=== PATIENT | male | born 1985 | race Caucasian/White ===

== ENCOUNTER 2019-10-23 08:42 | Observation (INO) | payer OTHER ==
[2019-10-23] MEDS ORDERED: Ketorolac 30 MG/ML SDV IVPUSH ONE ×3 (08:53→17:45)
[2019-10-23] MEDS: Sodium Chloride 0.9% 10 ML Syringe FLUSH PRN ×3 (08:59→14:44)
[2019-10-23] MEDS ORDERED: Ondansetron 4 MG/2 ML SDV IVPUSH ONE (09:09)
[2019-10-23] MEDS ORDERED: HYDROmorphone 2 MG/ML SDV IVPUSH ONE (09:09)
--- NOTE | 2019-10-23 09:54 | EDM.PDOC ---
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, R foot slipped on ice, as his foot was moving laterally it caught in a rut or uneven ground, as he fell his body twisted no previous injury to ankles pt in considerable pain on arrival, felt much better after Toradol 30 mg IV, Dilaudid 2 mg IV and Zofran 4 mg IV XR d/w Dr Boo, there is no fx of tibia, there is a spiral fx of the distal 1/ 3rd of the fibula but not at the ankle mortise itself which is partially subluxed medially Dr Lima contacted, he is in the OR and will see pt in one hour Treatments MEDICINE ASSISTANT: Reports: Cold Therapy R ankle Pain Score (Numeric/FACES): 10 - Related Data Allergies Allergy/AdvReac Type Severity Reaction Status Date / Time No Known Allergies Allergy Verified 10/23/19 08:48 Home Meds: Home Meds Albuterol [Ventolin HFA] 2 puff Q4H PRN 10/23/19 [History] Past Medical History Respiratory History: Reports: Asthma Endocrine/Metabolic History: Reports: Obesity/BMI 30+ - Infectious Disease History Infectious Disease History: Reports: Chicken Pox - Past Surgical History HEENT Surgical History: Reports: Oral Surgery Social & Family History - Family History Family Medical History: Noncontributory - Tobacco Use Smoking Status *Q: Former Smoker Used Tobacco, but Quit: Yes Month/Year Tobacco Last Used: 2003 - Caffeine Use Caffeine Use: Reports: Soda - Recreational Drug Use Recreational Drug Use: No Review of Systems - Review of Systems Review Of Systems: See Below Constitutional: Reports: No Symptoms Eyes: Reports: No Symptoms Ears: Reports: No Symptoms Nose: Reports: No Symptoms Mouth/Throat: Reports: No Symptoms Respiratory: Reports: No Symptoms Cardiovascular: Reports: No Symptoms GI/Abdominal: Reports: No Symptoms Genitourinary: Reports: No Symptoms Musculoskeletal: Reports: Joint Pain Skin: Reports: No Symptoms Neurological: Reports: No Symptoms Psychiatric: Reports: No Symptoms ED EXAM, GENERAL - Physical Exam Exam: See Below Exam Limited By: No Limitations General Appearance: Alert, WD/WN, Moderate Distress Nose: Normal Inspection Head: Atraumatic, Normocephalic Neck: Normal Inspection, Supple, Non-Tender Respiratory/Chest: No Respiratory Distress Cardiovascular: Regular Rate, Rhythm Back Exam: Normal Inspection, Full Range of Motion, NT Extremities: Other (no ecchymosis, mild deformity at R ankle, 2+ DP pulse ) Neurological: Alert, Oriented, CN II-XII Intact, Normal Cognition, No Motor/ Sensory Deficits Psychiatric: Normal Affect, Normal Mood Skin Exam: Warm, Dry, Intact Lymphatic: No Adenopathy Course - Vital Signs Last Recorded V/S: Last Vital Signs Temp 36.7 C 10/23/19 13:44 Pulse 66 10/23/19 13:44 Resp 18 10/23/19 13:44 BP 122/78 10/23/19 13:44 Pulse Ox 98 10/23/19 13:44 - Orders/Labs/Meds Orders: Active Orders 24 hr Category Date Time Status Lactated Ringers [Ringers, Lactated] 1,000 ml Med 10/23/19 13:44 Active IV ASDIRECTED Morphine Med 10/23/19 12:27 Active 2 mg IVPUSH Q2H PRN Sodium Chloride 0.9% [Saline Flush] Med 10/23/19 08:53 Active 10 ml FLUSH ASDIRECTED PRN Peripheral IV Insertion Adult [OM.PC] Routine Oth 10/23/19 08:53 Ordered Medication Orders Lactated Ringer's (Ringers, Lactated) 1,000 mls @ 100 mls/hr IV ASDIRECTED MARY Morphine Sulfate (Morphine) 2 mg IVPUSH Q2H PRN PRN Reason: Pain Last Admin: 10/23/19 12:50 Dose: 2 mg Sodium Chloride (Saline Flush) 10 ml FLUSH ASDIRECTED PRN PRN Reason: Keep Vein Open Last Admin: 10/23/19 12:49 Dose: 10 ml Admin: 10/23/19 08:59 Dose: 10 ml Meds: Medications Generic Name Dose Route Start Last Admin Trade Name Freq PRN Reason Stop Dose Admin Lactated Ringer's 1,000 mls @ 100 mls/hr 10/23/19 13:44 Ringers, Lactated IV ASDIRECTED MARY Morphine Sulfate 2 mg 10/23/19 12:27 10/23/19 12:50 Morphine IVPUSH 2 mg Q2H PRN Administration Pain Sodium Chloride 10 ml 10/23/19 08:53 10/23/19 12:49 Saline Flush FLUSH 10 ml ASDIRECTED PRN Administration Keep Vein Open Discontinued Medications Generic Name Dose Route Start Last Admin Trade Name Freq PRN Reason Stop Dose Admin Hydromorphone HCl 2 mg 10/23/19 09:09 10/23/19 09:20 Dilaudid IVPUSH 10/23/19 09:10 2 mg ONETIME ONE Administration Ketorolac Tromethamine 30 mg 10/23/19 08:53 10/23/19 08:59 Toradol IVPUSH 10/23/19 08:54 30 mg ONETIME ONE Administration Ketorolac Tromethamine 15 mg 10/23/19 12:26 10/23/19 12:48 Toradol IVPUSH 10/23/19 12:27 15 mg ONETIME ONE Administration Ondansetron HCl 4 mg 10/23/19 09:09 10/23/19 09:17 Zofran IVPUSH 10/23/19 09:10 4 mg ONETIME ONE Administration - Re-Assessments/Exams Free Text/Narrative Re-Assessment/Exam: 10/23/19 11:[address] Lima after he completed his case in the OR, Dr Lima has recommended surgery and has proposed doing it this afternoon, pt and in agreement, pt has remained comfortable Departure - Departure Time of Disposition: 11:20 Disposition: Refer to Observation Condition: Good Clinical Impression: High ankle sprain of right lower extremity, Fracture subluxation of right ankle joint Fibula fracture Qualifiers: Encounter type: initial encounter Fibula location: distal Fracture morphology: torus Laterality: right - Discharge Information *PRESCRIPTION DRUG MONITORING PROGRAM REVIEWED*: Not Applicable *COPY OF PRESCRIPTION DRUG MONITORING REPORT IN PATIENT SCOTT: Not Applicable Sepsis Event Note - Evaluation Sepsis Screening Result: No Definite Risk - Focused Exam Vital Signs: Vital Signs Temp Pulse Resp BP Pulse Ox 10/23/19 13:44 36.7 C 66 18 122/78 98 10/23/19 09:30 72 18 137/84 98 10/23/19 08:42 36.7 C 94 24 H 161/87 H 99 Date Exam was Performed: 10/23/19 Time Exam was Performed: 14:10 - My Orders Last 24 Hours: My Active Orders 10/23/19 08:53 Sodium Chloride 0.9% [Saline Flush] 10 ml FLUSH ASDIRECTED PRN Peripheral IV Insertion Adult [OM.PC] Routine - Assessment/Plan Last 24 Hours: My Active Orders 10/23/19 08:53 Sodium Chloride 0.9% [Saline Flush] 10 ml FLUSH ASDIRECTED PRN Peripheral IV Insertion Adult [OM.PC] Routine
[2019-10-23] MEDS ORDERED: Midazolam 1 MG/ML 2 ML SDV IV ONE (10:00)
[2019-10-23] MEDS ORDERED: Lactated Ringers 1,000 ML IV ONE (10:00)
[2019-10-23] MEDS ORDERED: Propofol 200 MG/20 ML SDV IV ONE (10:00)
[2019-10-23] MEDS ORDERED: Lidocaine 2% 5 ML SDV INJECT ONE (10:00)
[2019-10-23] MEDS ORDERED: HYDROmorphone 2 MG/ML SDV IV ONE (10:00)
[2019-10-23] MEDS ORDERED: Rocuronium 100 MG/10 ML MDV IV ONE (10:00)
[2019-10-23] MEDS ORDERED: fentaNYL 100 MCG/2 ML SDV IV ONE (10:00)
[2019-10-23] MEDS ORDERED: Succinylcholine 200 MG/10 ML MDV IV ONE (10:00)
--- NOTE | 2019-10-23 10:07 | CR ---
INDICATION: Fall, pain. Slipped on ice. RIGHT ANKLE: Three views of the right ankle were obtained 10/23/19 - no comparisons. What appears to be a BB is noted overlying the pretibial area lower middle third area of the tibia. There is a spiral comminuted fracture of the distal fibular shaft with approximately 4 mm lateral offset of the distal fracture fragment. Only minimal angulation of that distal fracture fragment is noted at the fracture site. Additionally, there is noted subluxation of the talus laterally. No tibial fracture site was seen. IMPRESSION: Fibular fracture with ligamental injury medially and subluxation at the ankle mortise. Report was called to Dr. Al at approximately 0945 hours. [facility]
[2019-10-23] MEDS: Morphine 2 MG/ML Syringe IVPUSH PRN (12:50)
--- NOTE | 2019-10-23 14:07 | PCM.HP.2 ---
H&P History of Present Illness - General Date of Service: 10/23/19 Admit Problem/Dx: right distal fibular shaft fracture Source of Information: Patient, Family, RN History Limitations: Reports: No Limitations - History of Present Illness Onset of Symptoms: Reports: Today, Sudden Symptom Onset Date: 10/23/19 Duration of Symptoms: Reports: Hour(s): Location: Reports: Lower Extremity, Right Quality: Reports: Ache, Burning, Dull Severity: Moderate Improves with: Reports: Immobilization Worsens with: Reports: Movement Associated Symptoms: Reports: No Other Symptoms R ankle Pain Score (Numeric/FACES): 10 - Related Data Allergies/Adverse Reactions: Allergies Allergy/AdvReac Type Severity Reaction Status Date / Time No Known Allergies Allergy Verified 10/23/19 08:48 Home Medications: Home Meds Albuterol [Ventolin HFA] 2 puff Q4H PRN 10/23/19 [History] Past Medical History Respiratory History: Reports: Asthma Endocrine/Metabolic History: Reports: Obesity/BMI 30+ - Infectious Disease History Infectious Disease History: Reports: Chicken Pox - Past Surgical History HEENT Surgical History: Reports: Oral Surgery Social & Family History - Family History Family Medical History: Noncontributory - Tobacco Use Smoking Status *Q: Former Smoker Used Tobacco, but Quit: Yes Month/Year Tobacco Last Used: 2003 - Caffeine Use Caffeine Use: Reports: Soda - Recreational Drug Use Recreational Drug Use: No H&P Review of Systems - Review of Systems: Review Of Systems: See Below General: Reports: No Symptoms HEENT: Reports: No Symptoms Pulmonary: Reports: No Symptoms Cardiovascular: Reports: No Symptoms Gastrointestinal: Reports: No Symptoms Genitourinary: Reports: No Symptoms Musculoskeletal: Reports: Leg Pain, Joint Pain, Joint Swelling Skin: Reports: No Symptoms Psychiatric: Reports: No Symptoms Neurological: Reports: No Symptoms Hematologic/Lymphatic: Reports: No Symptoms Immunologic: Reports: No Symptoms Exam - Exam Exam: See Below - Vital Signs Vital Signs: Last Vital Signs Temp 98.1 F 10/23/19 13:44 Pulse 66 10/23/19 13:44 Resp 18 10/23/19 13:44 BP 122/78 10/23/19 13:44 Pulse Ox 98 10/23/19 13:44 Weight: 330 lb - Exam General: Alert, Oriented, Cooperative, Moderate Distress HEENT: PERRLA, Conjunctiva Clear, EACs Clear, EOMI, Hearing Intact, Mucosa Moist & [place] Neck: Supple, Trachea Midline Lungs: Clear to Auscultation, Normal Respiratory Effort Cardiovascular: Regular Rate, Regular Rhythm Extremities: Joint Swelling, Leg Pain, Limited Range of Motion Peripheral Pulses: 2+: Dorsalis Pedis (L), Dorsalis Pedis (R) Skin: Warm, Dry, Intact Neurological: Cranial Nerves Intact, Other Neuro Extensive - Mental Status: Alert, Oriented x3, Normal Mood/Affect, Normal Cognition, Memory Intact Psychiatric: Alert, Normal Affect, Normal Mood Sepsis Event Note - Evaluation Sepsis Screening Result: No Definite Risk - Focused Exam Vital Signs: Vital Signs Temp Pulse Resp BP Pulse Ox 10/23/19 13:44 98.1 F 66 18 122/78 98 10/23/19 09:30 72 18 137/84 98 10/23/19 08:42 98.1 F 94 24 H 161/87 H 99 Date Exam was Performed: 10/23/19 Time Exam was Performed: 14:03 - Problem List (1) Fracture of fibula, right, closed SNOMED Code(s): 719706113, 24621712898355802 ICD Code: S82.401A - UNSP FRACTURE OF SHAFT OF RIGHT FIBULA, INIT FOR CLOS FX Status: Acute Current Visit: Yes Qualifiers: Encounter type: initial encounter Fibula location: distal Problem List Initiated/Reviewed/Updated: Yes Orders Last 24hrs: Active Orders 24 hr Category Date Time Status Lactated Ringers [Ringers, Lactated] 1,000 ml Med 10/23/19 13:44 Active IV ASDIRECTED Morphine Med 10/23/19 12:27 Active 2 mg IVPUSH Q2H PRN Sodium Chloride 0.9% [Saline Flush] Med 10/23/19 08:53 Active 10 ml FLUSH ASDIRECTED PRN Peripheral IV Insertion Adult [OM.PC] Routine Oth 10/23/19 08:53 Ordered Medication Orders Lactated Ringer's (Ringers, Lactated) 1,000 mls @ 100 mls/hr IV ASDIRECTED MARY Morphine Sulfate (Morphine) 2 mg IVPUSH Q2H PRN PRN Reason: Pain Last Admin: 10/23/19 12:50 Dose: 2 mg Sodium Chloride (Saline Flush) 10 ml FLUSH ASDIRECTED PRN PRN Reason: Keep Vein Open Last Admin: 10/23/19 12:49 Dose: 10 ml Admin: 10/23/19 08:59 Dose: 10 ml Assessment/Plan Comment:: A: 34 yo male recently fell from standing position today. denies previous injury to right ankle. Seen in ER and plain films confirm above mentioned diagnosis P: to OR today for ORIF distal fibular shaft. f/u 2 weeks in clinic nwb x 8 weeks - Mortality Measure Prognosis:: Good
[2019-10-23] MEDS: Lactated Ringers 1,000 ML IV SCH ×2 (14:44→23:34)
[2019-10-23] MEDS ORDERED: Bupivacaine 0.5%/EPINEPHrine 1:200,000 50 ML MDV INJECT ONE (15:20)
--- NOTE | 2019-10-23 15:55 | PCM.OPNOTE ---
- General Post-Op/Procedure Note Date of Surgery/Procedure: 10/23/19 Operative Procedure(s): orif right distal fibular shaft Pre Op Diagnosis: closed distal fibular shaft fracture Post-Op Diagnosis: Same Anesthesia Technique: General ET Tube Primary Surgeon: Norm Lima Anesthesia Provider: Shannon Brown EBL in mLs: 25 Complications: None Condition: Good
[2019-10-23] MEDS ORDERED: hydrOXYzine HCl 25 MG Tab PO PRN (18:07)
[2019-10-23] MEDS: Acetaminophen/oxyCODONE 325-5 MG Tab PO PRN (20:20)
--- NOTE | 2019-10-23 22:02 | OR ---
DATE OF OPERATION: 10/23/2019 SURGEON: Norm Lima DO PREOPERATIVE DIAGNOSIS: Right distal fibular shaft fracture. POSTOPERATIVE DIAGNOSIS: Right distal fibular shaft fracture. PROCEDURE: Open reduction internal fixation right distal fibular shaft fracture. ANESTHESIA: General endotracheal intubation. FLUID: Lactated Ringer's solution. ESTIMATED BLOOD LOSS: 25 mL. COMPLICATIONS: None. SPECIMEN: None. DISCHARGE DISPOSITION: Stable to PACU. HISTORY AND INDICATION FOR PROCEDURE: The patient was seen preoperatively in the ER. He had slipped and fallen. His preoperative imaging confirmed the above-mentioned diagnosis. Risks and benefits of the procedure were explained to the patient. Informed consent was obtained. DETAILS OF PROCEDURE: The patient was seen preoperatively by myself and by Anesthesia staff in the preoperative holding area where the operative site was marked. He was brought to the operative suite by Anesthesia staff, where general anesthesia was administered. All extremities were found to be well padded. A bump was placed under his right hip. The right thigh had a well- padded tourniquet placed. The right lower extremity was then prepped and draped in a sterile manner. Time-out was called identifying the correct patient, correct procedure, the correct site, and the antibiotics were begun within appropriate period of time. The right lower extremity was exsanguinated. Tourniquet was raised to 250 mmHg. A sterilely draped C-arm was used to identify the fracture site. An incision was made 10 cm proximal and distal to this graham and carried down to the subcutaneous fascia. I could see a hematoma and went through that rent in the muscle where it was at, and then used an elevator to bluntly elevate the soft tissues off the distal fibula. After that had been accomplished, I then irrigated to remove more of the hematoma. I then reduced this with bone clamps. I see that I could reduce, so I removed the clamps and then placed an 8-hole one- third tubular plate and then clamped it to the bone clamp. I then applied 2 screws and confirmed that this provided reduction on fluoroscopy. I then drilled and filled the remainder of the screw holes in the plate and then took final films which showed good reduction as well as reduction of the mortise. We then irrigated with saline again and then closed the subcutaneous layer with #1 StrataFix, followed by skin jany, followed by Betadine-soaked Adaptic, fluffs, and Medipore tape. He was then later placed into a boot in the PACU. He was taken to PACU in stable condition /[id number] BS/VIELKAL
[2019-10-24] MEDS: Morphine 2 MG/ML Syringe IVPUSH PRN ×3 (00:15→12:59)
[2019-10-24] MEDS ORDERED: Acetaminophen/oxyCODONE 325-5 MG Tab PO STA (04:48)
[2019-10-24] MEDS ORDERED: Ketorolac 30 MG/ML SDV IVPUSH STA (04:49)
[2019-10-24] MEDS: Lactated Ringers 1,000 ML IV SCH ×3 (08:34→23:05)
[2019-10-24] MEDS ORDERED: Midazolam 1 MG/ML 2 ML SDV IV ONE (08:49)
[2019-10-24] MEDS ORDERED: Propofol 200 MG/20 ML SDV IV ONE (08:49)
[2019-10-24] MEDS ORDERED: Ropivacaine 0.5% 5 MG/ML 20 ML SDV INJECT ONE (08:49)
[2019-10-24] MEDS ORDERED: Lidocaine 1% PF 2 ML SDV INJECT ONE (08:49)
[2019-10-24] MEDS ORDERED: fentaNYL 100 MCG/2 ML SDV IV ONE (08:49)
--- NOTE | 2019-10-24 08:53 | PCM.PN ---
- General Info Date of Service: 10/24/19 Admission Dx/Problem (Free Text): right distal fibular shaft fracture Functional Status: Reports: Pain Controlled, Tolerating Diet, Urinating - Review of Systems General: Reports: No Symptoms HEENT: Reports: No Symptoms Pulmonary: Reports: No Symptoms Cardiovascular: Reports: No Symptoms Gastrointestinal: Reports: No Symptoms Genitourinary: Reports: No Symptoms Musculoskeletal: Reports: Joint Pain, Joint Swelling Skin: Reports: No Symptoms Neurological: Reports: No Symptoms Psychiatric: Reports: No Symptoms - Patient Data Vitals - Most Recent: Last Vital Signs Temp 97.5 F 10/24/19 04:20 Pulse 72 10/24/19 04:20 Resp 18 10/24/19 04:20 BP 142/88 H 10/24/19 04:20 Pulse Ox 97 10/24/19 04:20 Weight - Most Recent: 356 lb I&O - Last 24 Hours: Intake & Output 10/23/19 10/24/19 10/24/19 22:59 06:59 14:59 Intake Total 900 Balance 900 Med Orders - Current: Current Medications Hydroxyzine HCl (Atarax) 25 mg PO Q6H PRN PRN Reason: Pain Lactated Ringer's (Ringers, Lactated) 1,000 mls @ 100 mls/hr IV ASDIRECTED MARY Last Admin: 10/24/19 08:34 Dose: 100 mls/hr Morphine Sulfate (Morphine) 2 mg IVPUSH Q2H PRN PRN Reason: Pain Last Admin: 10/24/19 04:23 Dose: 2 mg Oxycodone/Acetaminophen (Percocet 325-5 Mg) 1 tab PO Q6H PRN PRN Reason: Pain Last Admin: 10/23/19 20:20 Dose: 1 tab Sodium Chloride (Saline Flush) 10 ml FLUSH ASDIRECTED PRN PRN Reason: Keep Vein Open Last Admin: 10/23/19 14:44 Dose: 10 ml Discontinued Medications Hydromorphone HCl (Dilaudid) 2 mg IVPUSH ONETIME ONE Stop: 10/23/19 09:10 Last Admin: 10/23/19 09:20 Dose: 2 mg Cefazolin Sodium 3 gm/ Sodium (Chloride) 100 mls @ 200 mls/hr IV ONETIME ONE Stop: 10/23/19 14:59 Last Admin: 10/23/19 19:38 Dose: Not Given Ketorolac Tromethamine (Toradol) 30 mg IVPUSH ONETIME ONE Stop: 10/23/19 08:54 Last Admin: 10/23/19 08:59 Dose: 30 mg Ketorolac Tromethamine (Toradol) 15 mg IVPUSH ONETIME ONE Stop: 10/23/19 12:27 Last Admin: 10/23/19 12:48 Dose: 15 mg Ketorolac Tromethamine (Toradol) 30 mg IVPUSH ONETIME ONE Stop: 10/23/19 17:46 Last Admin: 10/23/19 18:06 Dose: 30 mg Ketorolac Tromethamine (Toradol) 30 mg IVPUSH ONETIME STA Stop: 10/24/19 04:50 Last Admin: 10/24/19 05:04 Dose: 30 mg Ondansetron HCl (Zofran) 4 mg IVPUSH ONETIME ONE Stop: 10/23/19 09:10 Last Admin: 10/23/19 09:17 Dose: 4 mg Oxycodone/Acetaminophen (Percocet 325-5 Mg) 2 tab PO ONETIME STA Stop: 10/24/19 04:49 Last Admin: 10/24/19 05:05 Dose: 2 tab - Exam General: Alert, Oriented, Cooperative, No Acute Distress HEENT: Pupils Equal, Pupils Reactive, EOMI, Mucous Membr. Moist/[place] Neck: Supple, Trachea Midline Lungs: Normal Respiratory Effort GI/Abdominal Exam: No Distention Extremities: Joint Swelling, Leg Pain, Limited Range of Motion Peripheral Pulses: 2+: Dorsalis Pedis (L), Dorsalis Pedis (R) Skin: Warm, Dry, Intact Wound/Incisions: Healing Well, Dressing Dry and Intact, No Drainage Neurological: No New Focal Deficit Psy/Mental Status: Alert, Normal Affect, Normal Mood Sepsis Event Note - Evaluation Sepsis Screening Result: No Definite Risk - Focused Exam Vital Signs: Vital Signs Temp Pulse Resp BP Pulse Ox 10/24/19 04:20 97.5 F 72 18 142/88 H 97 10/24/19 00:00 98.0 F 75 16 107/64 94 L Date Exam was Performed: 10/24/19 Time Exam was Performed: 08:49 - Problem List & Annotations (1) Fracture of fibula, right, closed SNOMED Code(s): 212731605, 32214458018071890 Code(s): S82.401A - UNSP FRACTURE OF SHAFT OF RIGHT FIBULA, INIT FOR CLOS FX Status: Acute Current Visit: Yes Qualifiers: Encounter type: initial encounter Fibula location: distal - Problem List Review Problem List Initiated/Reviewed/Updated: Yes - My Orders Last 24 Hours: My Active Orders 10/23/19 12:27 Morphine 2 mg IVPUSH Q2H PRN 10/23/19 13:44 Lactated Ringers [Ringers, Lactated] 1,000 ml IV ASDIRECTED 10/23/19 16:02 Tibia Fibula Rt [CR] Routine 10/23/19 16:50 Admission Status [Patient Status] [ADT] Routine 10/23/19 17:40 Ankle Min 3V Rt [CR] Routine 10/23/19 18:06 Neurovascular Check [RC] 08,12,16,20,00,04 Up to Chair [RC] TIDMEALS Acetaminophen/oxyCODONE [Percocet 325-5 MG] 1 tab PO Q6H PRN 10/23/19 18:07 hydrOXYzine HCL [Atarax] 25 mg PO Q6H PRN 10/24/19 08:39 Code Status [Resuscitation Status] Routine 10/24/19 Breakfast NPO After Midnight [Nothing per Oral After Midnight Diet] [DIET] - Plan Plan:: A: 34 yo male POD 1 right fibula ORIF. Pt was combative coming out of anesthesia and kicked staff with operative leg. Post operative radiographs were ordered to evaluate if hardware was still in place. This showed a wide mortise consistent with syndesmotic injury. This was not present intra-operatively verified while stressing the syndesmosis and C -arm images verified this. P: I explained the need to repair the syndesmosis to the patient. We will proceed today at noon to OR. Risks and goals of procedure were explained. Will DC after surgery today. f/u 2 weeks in clinic nwb x 8 weeks
[2019-10-24] MEDS ORDERED: Bupivacaine 0.5%/EPINEPHrine 1:200,000 50 ML MDV INJECT ONE (11:00)
--- NOTE | 2019-10-24 11:13 | US ---
INDICATION: Left femoral nerve block. ULTRASOUND RFA GUIDANCE: Ultrasound was utilized for guidance to the left femoral nerve for blockage. Several images were obtained showing the needle placement. MTDD
--- NOTE | 2019-10-24 11:16 | CR ---
INDICATION: ORIF C-ARM LESS THAN ONE HOUR: 0.2 minutes C-arm fluoroscopy time was utilized in right fibular fracture ORIF procedure. KATERIN
--- NOTE | 2019-10-24 11:20 | CR ---
INDICATION: Pain, recent surgery. RIGHT ANKLE: Three views of the right ankle were obtained and revealed a plate fixing comminuted distal fibular shaft fracture fragments in good position and alignment and a complicating process was not identified. There is noted fracture line extending below the level of the plate with multiple screws. Subluxation is again noted at the ankle mortise with lateral shift of the talus with respect to the tibia of approximately 5 to 6 mm. This examination was obtained portable. There is a foreign body BB noted in the posterior interosseous soft tissues adjacent to the distal tibial shaft. Metallic skin clips are noted in place laterally. MTDD
--- NOTE | 2019-10-24 11:23 | CR ---
INDICATION: Postop. RIGHT TIB-FIB: Frontal and lateral views of the right tibia and fibula revealed post-ORIF change with plate across the comminuted fracture site of the distal fibular shaft with [address] Laterally, there are metallic skin clips. Position and alignment appears to be adequate. There is a large fracture fragment that is noted with slight separation at the posterior aspect of the fracture site. MTDD
--- NOTE | 2019-10-24 11:34 | PCM.OPNOTE ---
- General Post-Op/Procedure Note Date of Surgery/Procedure: 10/24/19 Operative Procedure(s): orif right ankle syndesmosis Pre Op Diagnosis: right ankle syndesmotic injury Post-Op Diagnosis: Same Anesthesia Technique: Moderate Sedation, Regional Block Primary Surgeon: Norm Lima Anesthesia Provider: Ralph Marx EBL in mLs: 15 Complications: None Condition: Good Free Text/Narrative:: Intake & Output 10/23/19 10/24/19 10/24/19 22:59 06:59 14:59 Intake Total 900 Balance 900
[2019-10-24] MEDS: Acetaminophen/oxyCODONE 325-5 MG Tab PO PRN ×2 (12:51→23:03)
--- NOTE | 2019-10-24 12:52 | PCM.SN ---
- Free Text/Narrative Note: ANESTHESIA ACUTE PAIN SERVICE Date: 10/24/2019 Time: 1000 to 1015 Dx: Right Ankle Syndesmotic Fracture Rx: ORIF Right Syndesmotic Fracture This patient had right ankle surgery on 10/23/2019 under GET[facility]. Upon emergence, he was extremely wild, combative and had SpO2's in the mid 80's. He refused spinal anesthesia yesterday. It was felt that staying away from GETA was ideal but he still refused a spinal anesthetic. I discussed at length with the patient, and surgeon the use of a peripheral nerve block with sedation. All agreed with the plan and the patient's questions were all answered completely. A consent was obtained. Procedure: Right Femoral Nerve Block with Ultrasound [U/S] Guidance. Monitors: SpO2 and Heart Rate. Sedation: Versed 2 mg's and 100 mcg's of Fentanyl IV. The patient was easily aroused and alert however his O2 saturations did decreased to 91% and nasal oxygen at 2 L/M was applied. The patient was in a supine position. A preprocedure U/S scan was done using U/ S identifying the right Femoral Artery, Vein and Nerve. Using aseptic technique , the right inguinal crease was prepped with a Chlora-Prep Sponge X 1 and allowed to dry. Under direct U/S visualization, I infiltrated the needle insertion site with 2 ml's of 1% Lidocaine plain using a 27 Ga. needle. With direct U/S visualization of the right Femoral Artery and Nerve, I inserted and advanced a 20 Ga. X 4 In. Stimuplex Ultra 360 Insulated Echogenic Needle into a good position with negative aspirations for blood. A divided dosage of .5% Naropin totaling 30 ml's was injected without problems under direct U/S visualization. The patient tolerated this nerve block well and had no complaints. Approximately 15 minutes later, he had a very good right leg block and no pain with pressure to his fracture site. Documentation: Please see the U/S images found in the PAC System in Radiology. Thank you for using this service. Ralph Marx CRNA Lei
--- NOTE | 2019-10-24 13:06 | OR ---
DATE OF OPERATION: 10/24/2019 SURGEON: Norm Lima DO PREOPERATIVE DIAGNOSIS: Right syndesmotic ankle injury. POSTOPERATIVE DIAGNOSIS: Right syndesmotic ankle injury. PROCEDURE: Open reduction and internal fixation, right ankle syndesmosis. ANESTHESIA: Femoral nerve block plus local plus conscious sedation. FLUID: Lactated Ringer solution. ESTIMATED BLOOD LOSS: 15 mL. COMPLICATIONS: None. SPECIMEN: None. DISCHARGE DISPOSITION: Stable to PACU. HISTORY AND INDICATIONS FOR THE PROCEDURE: The patient underwent surgery yesterday for distal fibular shaft fracture. When he was coming out of anesthesia, he kicked several times the operative leg. Postoperative films show that the syndesmosis was open. We had intraoperative imaging showing that it was closed after reduction of the fibula. The risks and goals of the procedure were explained to the patient. Informed consent was obtained. DETAILS OF PROCEDURE: The patient was seen preoperatively by myself and the Anesthesia staff in the preoperative holding area where the operative site was marked. He was brought to the operative suite by Anesthesia staff where femoral nerve block was performed and conscious sedation was performed. A well-padded tourniquet was placed on the right leg distal to the knee. The right lower extremity was then prepped and draped in a sterile manner. Time-out was called identifying the correct patient, the correct procedure, the correct site, and the antibiotics were begun within appropriate time. Fluoroscopy was used to visualize the area to go through to protect the syndesmosis. I opened a few of those jany up and then extended the incision. I placed a 4-hole plate, which was the smallest we had. I then used a K-wire to hold this in position. I drilled the distal syndesmotic screw first, which was 60 mm partially-threaded 4- 0 cancellous, and then did a 55 mm more proximally. This reduced it very nicely. We then irrigated with Betadine-infused irrigation and closed with #1 Stratafix and skin jany, then placed Betadine-soaked Adaptic dressing, fluffs, Kerlix, and an Kraig wrap. The patient was then allowed to awaken from conscious sedation and taken to the PACU in stable condition. /[id number] BS/VIELKAL
[2019-10-24] MEDS: Gabapentin 300 MG Cap PO SCH ×2 (13:12→20:36)
[2019-10-24] MEDS ORDERED: Acetaminophen/oxyCODONE 325-5 MG Tab PO PRN (13:33)
--- NOTE | 2019-10-24 13:46 | CR ---
INDICATION: Guidance for ORIF ankle. C-ARM LESS THAN 1 HOUR IN OR: 0.2 minutes C-arm fluoroscopy time was utilized in OR for ORIF for guidance with stabilization of the ankle mortise. Nine images of the ankle mortise were obtained and revealed placement of a plate with 2 screws fixing the distal fibula to the distal tibia to correct the ankle mortise subluxation. The ankle mortise space appears to be symmetrical at this time. A definite complicating process was not identified. MTDD
[2019-10-24] MEDS ORDERED: HYDROmorphone 2 MG/ML SDV IVPUSH PRN (13:49)
[2019-10-24] MEDS: Ketorolac 30 MG/ML SDV IVPUSH SCH ×2 (14:12→20:36)
[2019-10-24] MEDS: Sodium Chloride 0.9% 10 ML Syringe FLUSH PRN (14:36)
[2019-10-25] MEDS: Ketorolac 30 MG/ML SDV IVPUSH SCH ×2 (02:13→07:44)
[2019-10-25] MEDS: Sodium Chloride 0.9% 10 ML Syringe FLUSH PRN (07:45)
--- NOTE | 2019-10-25 08:27 | PCM.DCSUM1 ---
Discharge Summary - Hospital Course Free Text/Narrative:: Patient discharged to home today, with . He is doing well and pain is well controlled with oral medications. Diagnosis: Stroke: No - Discharge Data Discharge Date: 10/25/19 Discharge Disposition: Home, Self-Care 01 Condition: Good - Referral to Home Health Primary Care Physician: lM Corea NP - Discharge Diagnosis/Problem(s) (1) Fibula fracture SNOMED Code(s): 48887025 ICD Code: S82.409A - UNSP FRACTURE OF SHAFT OF UNSP FIBULA, INIT FOR CLOS FX Status: Acute Priority: High Current Visit: Yes Onset Date: ~10/23/19 Qualifiers: Encounter type: initial encounter Fibula location: distal Fracture type: closed Fracture morphology: torus Laterality: right Qualified Code(s): S82.821A - Torus fracture of lower end of right fibula, initial encounter for closed fracture - Patient Summary/Data Operative Procedure(s) Performed: orif right ankle syndesmosis - Patient Instructions Diet: Usual Diet as Tolerated Activity: Apply Ice Activity, Other: No weight bearing on the right lower extremity, with CAM boot Driving: Do Not Drive Showering/Bathing: May Shower Wound/Incision Care: Keep Operative Site/Wound Site Clean and Dry Notify Provider of: Fever, Increased Pain, Swelling and Redness, Drainage - Discharge Plan *PRESCRIPTION DRUG MONITORING PROGRAM REVIEWED*: Not Applicable *COPY OF PRESCRIPTION DRUG MONITORING REPORT IN PATIENT SCOTT: Not Applicable Prescriptions/Med Rec: oxyCODONE HCl/Acetaminophen [Oxycodone-Acetaminophen 5-325] 1 each PO Q6HR #28 tablet hydrOXYzine pamoate [Vistaril] 25 mg PO Q8H #21 cap Home Medications: Home Meds Albuterol [Ventolin HFA] 2 puff Q4H PRN 10/23/19 [History] hydrOXYzine pamoate [Vistaril] 25 mg PO Q8H #21 cap 10/23/19 [Rx] oxyCODONE HCl/Acetaminophen [Oxycodone-Acetaminophen 5-325] 1 each PO Q6HR #28 tablet 10/23/19 [Rx] Patient Handouts: Crutch Use, Adult, [id number], Acetaminophen; Oxycodone tablets, Displaced Fibular Ankle Fracture Treated With ORIF Forms: ED Department Discharge Referrals: Ml Corea PATIENT NAVIGATOR [Primary Care Provider] - - Discharge Summary/Plan Comment DC Time >30 min.: No Discharge Summary/Plan Comment: Discharge to home. - Patient Data Vitals - Most Recent: Last Vital Signs Temp 36.7 C 10/25/19 00:00 Pulse 89 10/25/19 00:00 Resp 16 10/25/19 00:00 BP 123/76 10/25/19 00:00 Pulse Ox 95 10/25/19 00:00 Weight - Most Recent: 161.479 kg I&O - Last 24 hours: Intake & Output 10/24/19 10/25/19 10/25/19 22:59 06:59 14:59 Intake Total 940 750 Balance 940 750 Med Orders - Current: Current Medications Gabapentin (Neurontin) 300 mg PO TID [facility] Last Admin: 10/24/19 20:36 Dose: 300 mg Hydromorphone HCl (Dilaudid) 2 mg IVPUSH Q6H PRN PRN Reason: Pain (moderate 4-6) Hydroxyzine HCl (Atarax) 25 mg PO Q6H PRN PRN Reason: Pain Lactated Ringer's (Ringers, Lactated) 1,000 mls @ 100 mls/hr IV ASDIRECTED MARY Last Admin: 10/24/19 23:05 Dose: 100 mls/hr Ketorolac Tromethamine (Toradol) 30 mg IVPUSH Q6H [facility] Stop: 10/25/19 14:01 Last Admin: 10/25/19 07:44 Dose: 30 mg Morphine Sulfate (Morphine) 2 mg IVPUSH Q2H PRN PRN Reason: Pain Last Admin: 10/24/19 12:59 Dose: 2 mg Oxycodone/Acetaminophen (Percocet 325-5 Mg) 1 tab PO Q6H PRN PRN Reason: Pain Last Admin: 10/24/19 23:03 Dose: 1 tab Sodium Chloride (Saline Flush) 10 ml FLUSH ASDIRECTED PRN PRN Reason: Keep Vein Open Last Admin: 10/25/19 07:45 Dose: 10 ml Discontinued Medications Diazepam (Valium) 5 mg IVPUSH ONETIME ONE Stop: 10/24/19 14:16 Last Admin: 10/24/19 14:25 Dose: 5 mg Hydromorphone HCl (Dilaudid) 2 mg IVPUSH ONETIME ONE Stop: 10/23/19 09:10 Last Admin: 10/23/19 09:20 Dose: 2 mg Cefazolin Sodium 3 gm/ Sodium (Chloride) 100 mls @ 200 mls/hr IV ONETIME ONE Stop: 10/23/19 14:59 Last Admin: 10/23/19 19:38 Dose: Not Given Cefazolin Sodium 3 gm/ Sodium (Chloride) 100 mls @ 200 mls/hr IV ONETIME ONE Stop: 10/24/19 11:14 Last Admin: 10/24/19 10:59 Dose: 200 mls/hr Ketorolac Tromethamine (Toradol) 30 mg IVPUSH ONETIME ONE Stop: 10/23/19 08:54 Last Admin: 10/23/19 08:59 Dose: 30 mg Ketorolac Tromethamine (Toradol) 15 mg IVPUSH ONETIME ONE Stop: 10/23/19 12:27 Last Admin: 10/23/19 12:48 Dose: 15 mg Ketorolac Tromethamine (Toradol) 30 mg IVPUSH ONETIME ONE Stop: 10/23/19 17:46 Last Admin: 10/23/19 18:06 Dose: 30 mg Ketorolac Tromethamine (Toradol) 30 mg IVPUSH ONETIME STA Stop: 10/24/19 04:50 Last Admin: 10/24/19 05:04 Dose: 30 mg Ondansetron HCl (Zofran) 4 mg IVPUSH ONETIME ONE Stop: 10/23/19 09:10 Last Admin: 10/23/19 09:17 Dose: 4 mg Oxycodone/Acetaminophen (Percocet 325-5 Mg) 2 tab PO ONETIME STA Stop: 10/24/19 04:49 Last Admin: 10/24/19 05:05 Dose: 2 tab Oxycodone/Acetaminophen (Percocet 325-5 Mg) 1 tab PO ONETIME PRN PRN Reason: Pain Last Admin: 10/24/19 14:24 Dose: 1 tab
== END 2019-10-25 08:50 | disposition home or self-care (01) ==
LOC: FB.ED 08:42 → FB.SDS 13:13 → FB.MS 17:06 → FB.SDS 10-24 15:38 → FB.MS 10-24 15:39
PROVIDERS: ADMIT Orthopaedic Surgery; ATTEND Orthopaedic Surgery
DX: S82.821A Torus fracture of lower end of right fibula, initial encounter for closed fracture (principal); S93.431A Sprain of tibiofibular ligament of right ankle, initial encounter; J45.909 Unspecified asthma, uncomplicated; E66.9 Obesity, unspecified; Z68.42 Body mass index [BMI] 45.0-49.9, adult; Z87.891 Personal history of nicotine dependence; W00.0XXA Fall on same level due to ice and snow, initial encounter; Y92.71 Barn as the place of occurrence of the external cause
CPT/HCPCS: 27784; 27829; 73590; 73610; 76000; 96361; 96374; 96375; 96376; 99284; A9270; C1713; C1776; G0378; J0330; J0690; J1170; J1885; J2001; J2250; J2270; J2405; J2704; J2795; J3010; J3360; J3490; J7050; J7120

== ENCOUNTER 2020-02-01 20:21 | Emergency (ER) | payer OTHER ==
--- NOTE | 2020-02-01 20:35 | EDM.PDOC ---
ED HPI GENERAL MEDICAL PROBLEM - General Chief Complaint: Skin Complaint Stated Complaint: leg infection Time Seen by Provider: 02/01/20 20:32 Source of Information: Reports: Patient History Limitations: Reports: No Limitations - History of Present Illness INITIAL COMMENTS - FREE TEXT/NARRATIVE: 34-year-old male who had a closed fracture of right ankle on 10/23/2019 had surgery on 10/24/2019 and then a redo surgery on 10/25/2019 because the patient injured his ankle again in the postoperative period who now presents to the emergency department in any of pain, redness, swelling and drainage from the lateral aspect of his right ankle along the incision. Apparently beginning about 6 days ago, he developed increased sensitivity and some pain along the right lateral ankle and that has progressively worsened with time. He noted that it was at the top of his boot that he wears for work. He had been cleared to go back to work with full activity on December, and he had been doing well until about 6 days ago when he began to have this pain. He was seen on 2019 by Fernanda De León for a recheck and it was felt that it was just inflammation at this point. He began to have some drainage from a small area/ wound that had developed along the right ankle incision wound and he was seen in walk-in clinic today by Sheila Pool. There was not sufficient drainage to obtain a culture and he was started on doxycycline 100 mg twice a day at that time. His that once he got home this evening he noticed some feeling of wetness along his ankle and he looked and saw that there was now bloody pus draining from a small opening along the right lateral ankle incision. He reports that he has some pain in the area. He reports that pain is a 3/10. It is a sharp and aching pain. It is worse with palpation and with movement of the ankle. He is able to ambulate. He has had no fevers or chills. There has been no nausea or vomiting. He has been eating and drinking normally. No malaise. There are no other associated signs or symptoms. There are no other modifying factors. 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 He has taken a dose of the doxycycline.) right ankle Pain Score (Numeric/FACES): 3 - Related Data Allergies Allergy/AdvReac Type Severity Reaction Status Date / Time No Known Allergies Allergy Verified 02/01/20 20:30 Past Medical History Respiratory History: Reports: Asthma Endocrine/Metabolic History: Reports: Obesity/BMI 30+ - Infectious Disease History Infectious Disease History: Reports: Chicken Pox - Past Surgical History HEENT Surgical History: Reports: Oral Surgery Musculoskeletal Surgical History: Reports: ORIF (Of right ankle with redo the following day secondary to injury that the patient sustained in the postoperative period.) Social & Family History - Tobacco Use Smoking Status *Q: Unknown Ever Smoked (Nonsmoker) - Caffeine Use Caffeine Use: Reports: Soda - Alcohol Use Alcohol Use History: Yes Alcohol Use Frequency: Socially (Occasional alcohol use.) - Living Situation & Occupation Occupation: Employed (He is a metcalf.) ED ROS GENERAL - Review of Systems Review Of Systems: See Below Constitutional: Reports: No Symptoms HEENT: Reports: No Symptoms Respiratory: Reports: No Symptoms Cardiovascular: Reports: No Symptoms Endocrine: Reports: No Symptoms GI/Abdominal: Reports: No Symptoms : Reports: No Symptoms Musculoskeletal: Reports: Leg Pain (Right ankle pain) Skin: Reports: Erythema, Wound, Other (Draining From wound on right lateral ankle) Neurological: Reports: No Symptoms Hematologic/Lymphatic: Reports: No Symptoms Immunologic: Reports: No Symptoms ED EXAM, SKIN/RASH Exam: See Below Exam Limited By: No Limitations General Appearance: Alert, WD/WN, No Apparent Distress Eye Exam: Bilateral Eye: EOMI, Normal Inspection Ears: Normal External Exam, Hearing Grossly Normal Nose: Normal Inspection, Normal Mucosa, No Blood Throat/Mouth: Normal Inspection, Normal Oropharynx, Normal Voice, No Airway Compromise Head: Atraumatic, Normocephalic Neck: Normal Inspection, Supple, Non-Tender, Full Range of Motion Respiratory/Chest: No Respiratory Distress, Lungs Clear, Normal Breath Sounds, No Accessory Muscle Use, Chest Non-Tender Cardiovascular: Normal Peripheral Pulses, Regular Rate, Rhythm, No Murmur Peripheral Pulses: 2+: Radial (L), Radial (R), Dorsalis Pedis (L), Dorsalis Pedis (R) GI/Abdominal: Normal Bowel Sounds, Soft, Non-Tender, No Mass Back Exam: Normal Inspection Extremities: Normal Capillary Refill, Pedal Edema (Mild in the right ankle area. ) Neurological: Alert, Oriented, CN II-XII Intact, Normal Cognition, No Motor/ Sensory Deficits Skin: Warm, Dry, Erythema (Mild erythema along the right lateral ankle just around the area on the incision of the drainage.), Wound/Incision (There is a draining wound on the right lateral ankle that is draining sanguinopurulent fluid.) Location, Skin: Lower Extremity, Right (Right lateral ankle area) Characteristics: Erythematous Associated features: Tenderness, Swelling, Inflammation, Weeping Course - Vital Signs Last Recorded V/S: Last Vital Signs Temp 36.9 C 02/01/20 20:21 Pulse 96 02/01/20 20:21 Resp 15 02/01/20 20:21 BP 146/101 H 02/01/20 20:21 Pulse Ox 98 02/01/20 20:21 - Orders/Labs/Meds Orders: Active Orders 24 hr Category Date Time Status CULTURE ROUTINE + SMEAR [RM] Stat Lab 02/01/20 20:57 Ordered - Re-Assessments/Exams Free Text/Narrative Re-Assessment/Exam: 02/01/20 20:50: Patient with jewel-purulent drainage from the incision on the lateral aspect of the right ankle. There is some tenderness in the area. He has no evidence of an advancing cellulitis but he does have some erythema in the area of the wound with the drainage. He has good perfusion in the foot. I will place a supportive dressing around the area [place] to cats drainage and he should change his twice daily and as needed. He should also be back on crutches with no weightbearing on his right leg for now. He should also follow- up with Fernanda De León on Wednesday. He was placed on doxycycline 100 mg twice a day by Sheila Pool today and he should continue to take these medications. Precautions and reasons for return to the emergency department were discussed with the patient was in the emergency department for more detailed in his discharge instructions. Departure - Departure Time of Disposition: 21:00 Disposition: Home, Self-Care 01 Condition: Good (Stable) Clinical Impression: Surgical wound infection, Cellulitis of right ankle - Discharge Information Instructions: Wound Infection, [id number], Cellulitis, Adult, [id number] Referrals: Fernanda De León VICE PRESIDENT MEDIA RELATIONS [Physician] - Forms: ED Department Discharge, ED Return to Work/School Form Additional Instructions: You have an infection of the right ankle surgical wound/incision. There is also some surrounding redness which suggests a spread of this infection to the soft tissue and skin of the lateral ankle. It is unclear if this is an infection associated with the hardware your ankle or if it is only in the superficial tissue. Change the dressing on your right ankle 2 times daily and as needed if it becomes saturated with drainage and use the Kraig wrap. Crutches with no weightbearing on your right. Try to keep your right ankle possible over the weekend. Continue to take the doxycycline that you were prescribed. Follow-up with Fernanda De León on Wednesday for recheck. Back to the emergency department for increasing pain, fever, spreading redness or any other concerning sign or symptom. Sepsis Event Note (ED) - Evaluation Sepsis Screening Result: No Definite Risk - Focused Exam Vital Signs: Vital Signs Temp Pulse Resp BP Pulse Ox 02/01/20 20:21 36.9 C 96 15 146/101 H 98 - My Orders Last 24 Hours: My Active Orders 02/01/20 20:57 CULTURE ROUTINE + SMEAR [RM] Stat - Assessment/Plan Last 24 Hours: My Active Orders 02/01/20 20:57 CULTURE ROUTINE + SMEAR [RM] Stat
== END 2020-02-01 21:10 | disposition home or self-care (01) ==
LOC: FB.ED 20:21
DX: T81.49XA Infection following a procedure, other surgical site, initial encounter (principal); L03.115 Cellulitis of right lower limb; J45.909 Unspecified asthma, uncomplicated; E66.9 Obesity, unspecified; Z68.41 Body mass index [BMI] 40.0-44.9, adult
CPT/HCPCS: 87070; 87077; 87186; 87205; 99283